=== PATIENT | female | born 1970 | race Hispanic/Latino ===

== ENCOUNTER 2023-09-03 16:33 | Emergency (ER) | payer SELFPAY ==
[~2023-09-03] VITALS: Ht 162.6 cm; Wt 63.0 kg
[2023-09-03] VITALS (8 sets, daily range): BP systolic 121–136; BP diastolic 50–79
[2023-09-03] MEDS ORDERED: KETOROLAC TROMETHAMINE 30 MG/ML SDV IV ONE (17:25)
[2023-09-03] MEDS ORDERED: ONDANSETRON HCl 4 MG/2 ML SDV IV ONE (17:25)
[2023-09-03] MEDS ORDERED: SODIUM CHLORIDE 0.9% 1,000 ML IV ONE (17:25)
[2023-09-03 17:46] LABS: BASO% 0.4 % (0-3); EOS% 1.8 % (0-8); HEMATOCRIT 36.9 % (37.0-47.0); HEMOGLOBIN 12.5 g/dl (12.0-16.0); IMMATURE GRANULOCYTES 0.1 % (0.0-5.0); LYMPH% 16.6 % (15-41); MEAN CELL VOLUME 91.3 fL CALC (80.0-100.0); MEAN CORPUSCULAR HGB 30.9 pG CALC (26.0-32.0); MEAN CORPUSCULAR HGB CONC 33.9 g/dL CAL (32.0-36.0); MONO% 8.5 % (2-13); NEUT# 7.42 thou/uL (2.00-7.15); NEUT% 72.6 % (42-76); RED BLOOD COUNT 4.04 mill/uL (4.20-5.60); RED CELL DISTRI WIDTH 12.5 % (11.5-15.5)
[2023-09-03 17:47] LABS: URINE BILIRUBIN - DIPSTICK Negative (NEGATIVE); URINE BLOOD DIPSTICK Moderate (NEGATIVE); URINE COLOR Yellow; URINE GLUCOSE - DIPSTICK Negative (NEGATIVE); URINE KETONE Negative (NEGATIVE); URINE LEUK ESTERASE Large (NEGATIVE); URINE NITRITE - DIPSTICK Negative (Negative); URINE PH 7.5 (4.5-8.0); URINE PROTEIN - DIPSTICK 30 mg/dL (NEG-TRACE); URINE SPECIFIC GRAVITY 1.015; URINE UROBILINOGEN - DIPSTICK 0.2 E.U./dL (0.2)
[2023-09-03 17:48] LABS: URINE WBC >100 WBC/hpf (0-5)
[2023-09-03] MEDS ORDERED: cefTRIAXone SODIUM 2 GM in SODIUM CHLORIDE 0.9% 100 ML IV ONE (18:00)
[2023-09-03 18:05] LABS: ALBUMIN 4.2 g/dL (3.2-5.0); ALKALINE PHOSPHATASE 118 u/l (38-126); ANION GAP 8 (6-22 (CALC)); BUN 10 mg/dL (7-17); BUN/CREATININE RATIO 18 (12-20 (CALC)); CARBON DIOXIDE 29 mmol/l (22-30); CHLORIDE 105 mmol/l (95-108); CREATININE 0.6 mg/dL (0.5-1.0); GFR FOR AFR.AMER. > 60 ML/MIN (>=60 (CALC)); GFR OTHER RACES > 60 ML/MIN (>=60 (CALC)); LIPASE 60 u/l (23-300); POTASSIUM 3.5 mmol/l (3.5-5.1); SGOT/AST 27 u/l (14-36); SODIUM 138 mmol/l (137-146); TOTAL PROTEIN 6.8 g/dL (6.3-8.2)
[2023-09-03] MEDS ORDERED: TAMSULOSIN HCL 0.4 MG CAP PO ONE (20:40)
[2023-09-03] MEDS ORDERED: oxyCODONE 5MG/ ACETAMINOPHEN 325MG TAB PO ONE (20:45)
[2023-09-03] MEDS ORDERED: TRAMADOL HYDROC50 M1 PO (20:52)
[2023-09-03] MEDS ORDERED: KEFLEX500 MG PO (20:52)
[2023-09-03] MEDS ORDERED: TAMSULOSIN0.4 MG PO (20:52)
[2023-09-03] MEDS ORDERED: TORADOL PO (20:52)
== END 2023-09-03 21:20 | disposition home or self-care (01) | DRG 690 ==
LOC: ED 16:33
PROVIDERS: Family Medicine; Nurse Practitioner
DX: N13.6 Pyonephrosis (principal); Z20.822 Contact with and (suspected) exposure to COVID-19